=== PATIENT | male | born 1990 | race Caucasian/White ===

== ENCOUNTER 2020-12-24 05:00 | Emergency (ER) | payer BC ==
[2020-12-24 05:15] VITALS: BP 123/81; PULSE 90
[2020-12-24] MEDS ORDERED: Fluorescein 1 MG Ophth Strip EYERT ONE (05:15)
--- NOTE | 2020-12-24 05:22 | EDM.PDOC ---
ED HPI GENERAL MEDICAL PROBLEM - General Chief Complaint: Eye Problems Stated Complaint: SWOLLEN RIGHT EYE Time Seen by Provider: 12/24/20 05:06 - History of Present Illness INITIAL COMMENTS - FREE TEXT/NARRATIVE: History of present illness: About 3 days ago the patient began to have irritation in his right eyelid. Over the last 3 days he noticed that the becomes swollen. When he woke up today it was swollen enough that he could hardly open his eye. His vision appears undisturbed except for a little bit of depth perception alteration. Its not terribly painful. It is not affected his ability to move his eye about an looks from side to side. There is no pain with extraocular motion. He has no systemic signs of illness. He has never had this sort of irritation before. He does not think he got anything into his eye. He does not have any discharge. The patient has been putting warm compresses and using saline irrigation. This is not helped. [] Review of systems: As per history of present illness and below otherwise all systems reviewed and negative. Past medical history: As per history of present illness and as reviewed below otherwise noncontributory. Surgical history: As per history of present illness and as reviewed below otherwise noncontributory. Social history: No reported history of drug or alcohol abuse. Family history: As per history of present illness and as reviewed below otherwise noncontributory. Physical exam: Constitutional - well developed, well-nourished and in no acute distress HEENT - normocephalic, no evidence of trauma - external nose and mouth normal - no mass in neck and no JVD - mucosae moist EYES -conjunctiva injected. Eyelids erythematous in the palpebral conjunctiva. Upper lid swollen and diffusely erythematous. Lid eversion negative for any foreign material. Fluorescein exam done to rule out corneal ulcer or foreign body. Exam negative. Full EOM, PERRL, no icterus - Respiratory - no respiratory distress, equal bilateral expansion Musculoskeletal no gross deformity of long bones or joints - no tenderness, swelling or edema Neurologic - Alert and oriented times four - CN II-XII grossly intact - motor sensory and coordination symmetrically normal Psychiatric - appropriate mood and affect with normal thought content Hematologic - No petechiae or purpura - mucosa appropriate color and sclera not pale - normal nail bed color and refill Integument - no rash or evidence of trauma - normal turgor Diagnostics: [] Therapeutics: [] Impression: [] Plan: [] Definitive disposition and diagnosis as appropriate pending reevaluation and review of above. right eye Pain Score (Numeric/FACES): 7 - Related Data Allergies Allergy/AdvReac Type Severity Reaction Status Date / Time No Known Allergies Allergy Verified 12/24/20 05:11 Home Meds: Home Meds Sulfacetamide [Bleph-10 Ophth Soln] 1 drop EYERT Q3H #1 bottle 12/24/20 [Rx] Past Medical History - Past Health History Medical/Surgical History: Denies Medical/Surgical History - Infectious Disease History Infectious Disease History: Reports: Chicken Pox Social & Family History - Family History Family Medical History: No Pertinent Family History ED ROS GENERAL - Review of Systems Review Of Systems: Comprehensive ROS is negative, except as noted in HPI. ED EXAM GENERAL W FULL EYE - Physical Exam Exam: See Below Text/Narrative:: My physical exam is in the HPI Course - Vital Signs Last Recorded V/S: Last Vital Signs Temp 36.5 C 12/24/20 05:12 Pulse 90 12/24/20 05:12 Resp 18 12/24/20 05:12 BP 123/81 12/24/20 05:12 Pulse Ox 97 12/24/20 05:12 - Orders/Labs/Meds Orders: Active Orders 24 hr Category Date Time Status Fluorescein [Ful-Sophy] Med 12/24/20 05:15 Once 1 mg EYERT ONETIME ONE Departure - Departure Time of Disposition: 05:24 Disposition: Home, Self-Care 01 Condition: Good Clinical Impression: Conjunctivitis - Discharge Information Referrals: PCP,None [Primary Care Provider] - Bruce Walker MD [Ordering Only Provider] - Additional Instructions: You are already doing the right thing. Warm compresses of the best treatment. I will add an antibiotic because of the diffuse inflammation and possibility of an infection. Call Dr. Pereyra today and see if he can see you this afternoon or tomorrow for reevaluation. [facility] - Primary [facility] [address] [place] [address] [id number] [address] [address] The following information is given to patients seen in the emergency department who are being discharged to home. This information is to outline your options for follow-up care. We provide all patients seen in our emergency department with a follow-up referral. The need for follow-up, as well as the timing and circumstances, are variable depending upon the specifics of your emergency department visit. If you don't have a primary care physician on staff, we will provide you with a referral. We always advise you to contact your personal physician following an emergency department visit to inform them of the circumstance of the visit and for follow-up with them and/or the need for any referrals to a consulting specialist. The emergency department will also refer you to a specialist when appropriate. This referral assures that you have the opportunity for follow-up care with a specialist. All of these measure are taken in an effort to provide you with optimal care, which includes your follow-up. Under all circumstances we always encourage you to contact your private physician who remains a resource for coordinating your care. When calling for follow-up care, please make the office aware that this follow-up is from your recent emergency room visit. If for any reason you are refused follow-up, please contact the [facility] Emergency Department at and asked to speak to the emergency department charge nurse. Sepsis Event Note (ED) - Evaluation Sepsis Screening Result: No Definite Risk - Focused Exam Vital Signs: Vital Signs Temp Pulse Resp BP Pulse Ox 12/24/20 05:12 36.5 C 90 18 123/81 97 - My Orders Last 24 Hours: My Active Orders 12/24/20 05:15 Fluorescein [Ful-Sophy] 1 mg EYERT ONETIME ONE - Assessment/Plan Last 24 Hours: My Active Orders 12/24/20 05:15 Fluorescein [Ful-Sophy] 1 mg EYERT ONETIME ONE
== END 2020-12-24 05:37 | disposition home or self-care (01) ==
LOC: MW.ED 05:00
DX: H10.9 Unspecified conjunctivitis (principal)
CPT/HCPCS: 99282; 99283